=== PATIENT | male | born 1980 | race Caucasian/White ===

== ENCOUNTER 2022-03-27 16:28 | Outpatient (CLI) | payer BC ==
[2022-03-27 17:46] LABS: Anion Gap 19 mmol/L (10-20); BUN (Urea Nitrogen) 11 mg/dL (8.9-20.6); Calc. Creatinine Clearance 0 mL/min (70-130); Calcium 10.2 mg/dL (7.8-10.44); Carbon Dioxide 27 mmol/L (22-29); Chloride 101 mmol/L (98-107); Glucose 104 mg/dL (70-105); Potassium 5.7 mmol/L (3.5-5.1); Sodium 141 mmol/L (136-145)
[2022-03-28 12:35] LABS: SARS-CoV-2 PCR by NAA Not Detected (NotDetected)
== END 2022-03-27 16:29 | disposition home or self-care (01) ==
LOC: CSHLAB 16:28
PROVIDERS: ATTEND Surgery
DX: Z01.812 Encounter for preprocedural laboratory examination (principal); Z20.822 Contact with and (suspected) exposure to COVID-19; K40.90 Unilateral inguinal hernia, without obstruction or gangrene, not specified as recurrent
CPT/HCPCS: 80048; U0003; U0005

== ENCOUNTER 2022-03-30 06:08 | Day surgery (SDC) | payer BC ==
[2022-03-28 14:00] VITALS: BMI 28.5
[2022-03-30] MEDS ORDERED: Bupivacaine PF 0.5% 30 ML VIAL ONE (06:59)
[2022-03-30] MEDS ORDERED: EPINEPHrine 1 MG/ML AMP ONE (07:00)
[2022-03-30] MEDS ORDERED: Lidocaine 1% MPF 2 ML VIAL ONE (07:08)
[2022-03-30 07:15] LABS: Potassium 4.7 mmol/L (3.5-5.1)
[2022-03-30] MEDS ORDERED: Dexmedetomidine 200 MCG/2 ML VIAL ONE (07:17)
[2022-03-30] MEDS ORDERED: ceFAZolin 2 GM/Dextrose 50 ML IVPB ONE (07:20)
[2022-03-30] MEDS ORDERED: Fentanyl 100 MCG/2 ML VIAL ONE ×2 (07:22→08:27)
[2022-03-30] MEDS ORDERED: Ondansetron PF 4 MG/2 ML Vial ONE (07:22)
[2022-03-30] MEDS ORDERED: Dexamethasone 20 MG/5 ML VIAL ONE (07:22)
[2022-03-30] MEDS ORDERED: PROPOFOL 20 ML ONE (07:22)
[2022-03-30] MEDS ORDERED: Lidocaine 2% PF 5 ML VIAL ONE (07:22)
[2022-03-30] MEDS ORDERED: Rocuronium Bromide 10 MG/ML (10ML VIAL) ONE (07:25)
[2022-03-30] MEDS ORDERED: Glycopyrrolate 0.2 MG/ML 5 ML SYRINGE ONE (08:07)
[2022-03-30] MEDS ORDERED: HYDROcodone/Acetaminophen 5/325 mg Tablet PO PRN (08:32)
[2022-03-30] MEDS ORDERED: Acetaminophen 325 MG TAB PO PRN (08:32)
[2022-03-30] MEDS ORDERED: HYDROcodone/Acetaminophen 5/325 mg Tablet ONE (09:15)
== END 2022-03-30 09:40 | disposition home or self-care (01) ==
LOC: CSHSDC 06:08
PROVIDERS: ATTEND Surgery
PROC: 0YU54JZ Supplement Right Inguinal Region with Synthetic Substitute, Percutaneous Endoscopic Approach (ICD-10-PCS; principal; 2022-03-30)
DX: K40.90 Unilateral inguinal hernia, without obstruction or gangrene, not specified as recurrent (principal); Z79.899 Other long term (current) drug therapy; I10 Essential (primary) hypertension; K21.9 Gastro-esophageal reflux disease without esophagitis; J45.909 Unspecified asthma, uncomplicated
CPT/HCPCS: 36415; 84132; C1713; J0171; J0690; J1100; J2001; J2405; J2704; J3010; S0020